=== PATIENT | male | born 1990 | race Caucasian/White ===

== ENCOUNTER → 2016-10-28 | Outpatient (CLI) | payer MEDICARE, OTHER | LOC: LAB 11:31 | DX: N46.9 Male infertility, unspecified (principal) | CPT/HCPCS: 89310 ==

== ENCOUNTER 2016-10-31 00:45 | Emergency (ER) | payer MEDICARE, OTHER | END 2016-10-31 02:04 | disposition home or self-care (01) | LOC: ER1 00:45 | DX: S83.92XA Sprain of unspecified site of left knee, initial encounter (principal); F17.210 Nicotine dependence, cigarettes, uncomplicated; Z88.8 Allergy status to other drugs, medicaments and biological substances; G40.909 Epilepsy, unspecified, not intractable, without status epilepticus; Z79.899 Other long term (current) drug therapy; W01.0XXA Fall on same level from slipping, tripping and stumbling without subsequent striking against object, initial encounter; Y92.009 Unspecified place in unspecified non-institutional (private) residence as the place of occurrence of the external cause | CPT/HCPCS: 73564; 96372; 99283; J1885 ==

== ENCOUNTER 2020-08-08 17:52 | Emergency (ER) | payer OTHER ==
[~2020-08-08 17:52] MED LIST: IBUPROFEN600 MG PO; IBUPROFEN800 MG PO; LODINE CAP 300300 MG PO; VIBRAMYCIN100 MG PO
[2020-08-08 18:56] LABS: HEMOGLOBIN 16.3 gm/dl (14.0-17.5); RED BLOOD COUNT 5.35 M/UL (4.20-5.50); WHITE BLOOD COUNT 7.2 K/UL (4.5-11.0)
[2020-08-08 19:13] LABS: BUN/CREATININE RATIO 13 (0-10)
== END 2020-08-08 19:03 | disposition admitted as inpatient to this hospital (09) ==
LOC: ER1 17:52
PROVIDERS: Emergency Medicine; Family Medicine
DX: S00.83XA Contusion of other part of head, initial encounter (principal); R55 Syncope and collapse; R07.9 Chest pain, unspecified; Z88.8 Allergy status to other drugs, medicaments and biological substances; G40.909 Epilepsy, unspecified, not intractable, without status epilepticus; X58.XXXA Exposure to other specified factors, initial encounter
CPT/HCPCS: 36415; 70450; 71045; 80053; 80307; 81001; 82550; 82553; 83735; 83874; 84484; 85025; 85379; 93005; 99285

== ENCOUNTER 2021-01-07 18:25 | Emergency (ER) | payer OTHER | END 2021-01-07 20:03 | disposition home or self-care (01) | LOC: ER1 18:25 | DX: G40.909 Epilepsy, unspecified, not intractable, without status epilepticus (principal); Z76.0 Encounter for issue of repeat prescription | CPT/HCPCS: 93005; 99282 ==

== ENCOUNTER 2021-03-19 21:22 | Emergency (ER) | payer OTHER ==
[2021-03-20 00:09] LABS: HEMOGLOBIN 16.3 gm/dl (14.0-17.5); RED BLOOD COUNT 5.28 M/UL (4.20-5.50); WHITE BLOOD COUNT 5.9 K/UL (4.5-11.0)
[2021-03-20 00:19] LABS: BUN/CREATININE RATIO 10 (0-10)
== END 2021-03-20 01:47 | disposition home or self-care (01) ==
LOC: ER1 21:22
PROVIDERS: Physician Assistant Medical
DX: R55 Syncope and collapse (principal); F17.210 Nicotine dependence, cigarettes, uncomplicated; Z88.5 Allergy status to narcotic agent
CPT/HCPCS: 71045; 80053; 81001; 82550; 82553; 83874; 84439; 84443; 84484; 85025; 85379; 93005; 96374; 99284; J1953

== ENCOUNTER 2021-03-27 18:57 | Emergency (ER) | payer OTHER ==
[2021-03-27] MEDS ORDERED: KEPPRA1000 MG PO (20:35)
== END 2021-03-27 20:43 | disposition home or self-care (01) ==
LOC: ER1 18:57
DX: G40.909 Epilepsy, unspecified, not intractable, without status epilepticus (principal); Z87.820 Personal history of traumatic brain injury; Z88.8 Allergy status to other drugs, medicaments and biological substances; Z79.899 Other long term (current) drug therapy
CPT/HCPCS: 93005; 99284

== ENCOUNTER 2021-04-18 03:41 | Emergency (ER) | payer OTHER ==
[~2021-04-18 03:41] MED LIST changes: +KEPPRA1000 MG PO
[2021-04-18 04:44] LABS: RED BLOOD COUNT 5.12 M/UL (4.20-5.50); WHITE BLOOD COUNT 9.6 K/UL (4.5-11.0)
[2021-04-18 05:28] LABS: BUN/CREATININE RATIO 11 (0-10)
== END 2021-04-18 06:48 | disposition home or self-care (01) ==
LOC: ER1 03:41
PROVIDERS: Physician Assistant
DX: G40.909 Epilepsy, unspecified, not intractable, without status epilepticus (principal); S24.104A Unspecified injury at T11-T12 level of thoracic spinal cord, initial encounter; S16.1XXA Strain of muscle, fascia and tendon at neck level, initial encounter; F17.210 Nicotine dependence, cigarettes, uncomplicated; W19.XXXA Unspecified fall, initial encounter
CPT/HCPCS: 70450; 71045; 72125; 72128; 80053; 85025; 99284

== ENCOUNTER 2021-06-07 21:43 | Emergency (ER) | payer OTHER ==
[2021-06-07 22:58] LABS: HEMOGLOBIN 16.1 gm/dl (14.0-17.5); RED BLOOD COUNT 5.27 M/UL (4.20-5.50); WHITE BLOOD COUNT 5.9 K/UL (4.5-11.0)
[2021-06-07 23:18] LABS: BUN/CREATININE RATIO 13 (0-10)
[2021-06-08] MEDS ORDERED: ZOFRAN4 MG PO (01:14)
== END 2021-06-08 01:17 | disposition home or self-care (01) ==
LOC: ER1 21:43
PROVIDERS: Physician Assistant Medical
DX: R11.2 Nausea with vomiting, unspecified (principal); F17.200 Nicotine dependence, unspecified, uncomplicated; Z88.8 Allergy status to other drugs, medicaments and biological substances; Z20.822 Contact with and (suspected) exposure to COVID-19
CPT/HCPCS: 80053; 81001; 85025; 99284; U0002

== ENCOUNTER 2021-06-26 11:53 | Emergency (ER) | payer OTHER ==
[~2021-06-26] VITALS: Ht 195.6 cm; Wt 121.1 kg
[~2021-06-26 11:53] MED LIST changes: +ZOFRAN4 MG PO
[2021-06-26 13:32] LABS: BUN/CREATININE RATIO 8 (0-10)
== END 2021-06-26 14:45 | disposition home or self-care (01) ==
LOC: ER1 11:53
PROVIDERS: Family Medicine
DX: G40.909 Epilepsy, unspecified, not intractable, without status epilepticus (principal); S46.912A Strain of unspecified muscle, fascia and tendon at shoulder and upper arm level, left arm, initial encounter; H91.90 Unspecified hearing loss, unspecified ear; Z87.820 Personal history of traumatic brain injury; Z88.5 Allergy status to narcotic agent; X58.XXXA Exposure to other specified factors, initial encounter
CPT/HCPCS: 73030; 80048; 96374; 99284; J1953

== ENCOUNTER 2021-06-28 20:14 | Emergency (ER) | payer OTHER | END 2021-06-28 22:45 | disposition home or self-care (01) | LOC: ER1 20:14 | DX: S06.0X0A Concussion without loss of consciousness, initial encounter (principal); S16.1XXA Strain of muscle, fascia and tendon at neck level, initial encounter; G40.909 Epilepsy, unspecified, not intractable, without status epilepticus; X58.XXXA Exposure to other specified factors, initial encounter | CPT/HCPCS: 70450; 72125; 96374; 96375; 99284; J1200; J2765 ==

== ENCOUNTER 2021-08-27 22:14 | Emergency (ER) | payer OTHER | END 2021-08-27 23:57 | disposition home or self-care (01) | LOC: ER1 22:14 | DX: S61.213A Laceration without foreign body of left middle finger without damage to nail, initial encounter (principal); F17.200 Nicotine dependence, unspecified, uncomplicated; W45.8XXA Other foreign body or object entering through skin, initial encounter; Y92.009 Unspecified place in unspecified non-institutional (private) residence as the place of occurrence of the external cause | CPT/HCPCS: 99283 ==

== ENCOUNTER 2022-01-16 23:56 | Emergency (ER) | payer OTHER | END 2022-01-17 01:55 | disposition home or self-care (01) | LOC: ER1 23:56 | DX: J06.9 Acute upper respiratory infection, unspecified (principal); F17.200 Nicotine dependence, unspecified, uncomplicated; Z88.8 Allergy status to other drugs, medicaments and biological substances; Z20.822 Contact with and (suspected) exposure to COVID-19 | CPT/HCPCS: 0240U; 71046; 99284 ==